=== PATIENT | female | born 1960 | race Two or more races ===

== ENCOUNTER 2025-09-08 10:00 | Day surgery (SDC) | payer OTHER ==
[2025-09-02 09:31] VITALS: BP 132/74
[2025-09-02 09:36] LABS: BASO % 0.5 % (0.1-1.2); EOS # 0.18 (0.04-0.54); EOS % 2.3 % (0.7-7.0); LYMPH # 1.89 (1.18-3.74); LYMPH % 23.6 % (19.3-53.1); MEAN PLATELET VOLUME 10.10 fl (9.4-12.4); MONO # 0.54 (0.24-0.82); MONO % 6.8 % (4.7-12.5); NEUT # 5.33 (1.56-6.13); NEUT % 66.5 % (34.0-71.1); RED CELL DISTRIBUTION WIDTH 15.1 % (11.6-14.4)
[2025-09-02 09:39] LABS: URINE APPEARANCE Clear; URINE BILIRRUBIN Negative (NEGATIVE); URINE BLOOD Negative; URINE COLOR Yellow; URINE GLUCOSE Negative (NEGATIVE); URINE KETONE Negative (NEGATIVE); URINE LEUKOCYTE Negative; URINE NITRATE Negative; URINE PROTEIN Negative (NEGATIVE); URINE UROBILINOGEN 1.0 E.U./dl
[2025-09-02 09:47] LABS: URINE BACTERIA 5.9 uL (0.0-1933); URINE EPITHELIAL CELLS 2.7 uL (0.0-38.8)
[2025-09-02 09:49] LABS: URINE CAST 0.00 uL (0.0-1.40); URINE RBC 0.8 uL (0.0-20.8); URINE WBC 1.0 uL (0.0-23.2)
[2025-09-02 10:09] LABS: INR 0.96
[2025-09-02 10:12] LABS: ALT/SGPT 21.0 U/L (12-78); AST/SGOT 10.0 U/L (15-37); BILIRUBIN TOTAL 0.66 mg/dL (0.3-1.2); BUN CREA RATIO 17.0 (7.0-25.0); CREATININE SERUM 0.52 mg/dL (0.55-1.02); GFR 118.72; GLOBULINA 3.6 G/DL (2.4-3.5); GLUCOSE FASTING 128.0 mg/dL (65-100); OSMOLALITY SERUM 282.0 MOSM/KG (275-295)
[~2025-09-08] VITALS: Ht 157.5 cm; Wt 90.7 kg
[~2025-09-08 10:00] MED LIST: LOSARTAN-HCTZ1 EACH PO
[2025-09-08] MEDS ORDERED: CEFAZOLIN SODIUM 1,000 MG VIAL ONE (10:37)
[2025-09-08] MEDS ORDERED: BUPIVACAINE HCL/MPF 0.5% 30ML VIAL ONE (12:05)
[2025-09-08] MEDS ORDERED: LIDOCAINE HCL 1%/EPINEPHRINE 20ML VIAL IJ ONE (12:05)
[2025-09-08] MEDS ORDERED: SUGAMMADEX SODIUM 200 MG/2 ML VIAL IV ONE (13:32)
[2025-09-08] MEDS ORDERED: ISOPROPYL ALCOHOL 30 ML OUNCE TOP ONE (13:45)
[2025-09-08] MEDS ORDERED: ALEVE220 M1 PO (16:01)
[2025-09-08] MEDS ORDERED: PERCOCET 5-3251 EACH PO (16:01)
[2025-09-08] MEDS ORDERED: CEFADROXIL500 MG PO (16:01)
== END 2025-09-08 16:35 | disposition home or self-care (01) ==
LOC: CIR.AMB 10:00
PROVIDERS: ATTEND Orthopaedic Surgery
DX: S52.531A Colles' fracture of right radius, initial encounter for closed fracture (principal); S52.691A Other fracture of lower end of right ulna, initial encounter for closed fracture
CPT/HCPCS: 25609; 20902; 25652; L8699